=== PATIENT | female | born 1990 | race Caucasian/White ===

== ENCOUNTER 2017-05-31 16:39 | Emergency (ER) | payer MEDICAID ==
[2017-05-31 17:45] VITALS: BMI 47.2
[2017-05-31 18:48] LABS: SQUAMOUS EPITHIAL 5 /hpf (0-5); URINE BACTERIA RARE (<OCC); URINE BILIRUBIN NEGATIVE (NEGATIVE); URINE BLOOD NEGATIVE (NEGATIVE); URINE CLARITY CLOUDY (Clear); URINE COLOR YELLOW (YELLOW); URINE GLUCOSE (UA) NEG (Normal); URINE LEUKOCYTE ESTERASE MOD Leu/uL (Negative); URINE PROTEIN 30 mg/dL (NEGATIVE); URINE UROBILINOGEN 0.2-1.0 mg/dL (0.2-1.0)
[2017-06-01 00:50] VITALS: BP 126/59; PULSE 108; RESP 17; TEMP 97.9; O2SAT 100
== END 2017-05-31 20:10 | disposition home or self-care (01) ==
LOC: H.EROB2 16:39
DX: O26.93 Pregnancy related conditions, unspecified, third trimester (principal); R10.2 Pelvic and perineal pain; Z3A.38 38 weeks gestation of pregnancy; O47.1 False labor at or after 37 completed weeks of gestation; Z59.0 Homelessness

== ENCOUNTER 2017-08-14 23:22 | Emergency (ER) | payer MEDICAID ==
[2017-08-14 23:23] VITALS: BMI 47.2
[2017-08-14 23:35] VITALS: BP 110/68; PULSE 102; RESP 18; TEMP 98.2; O2SAT 99
--- NOTE | 2017-08-14 23:49 | ED PDOC ---
HPI: Abdomen Time Seen by Provider: 08/14/17 23:47 Chief Complaint (Nursing): Abdominal Pain Chief Complaint (Provider): abd pain History Per: Patient Additional Complaint(s): 27-year-old non-domiciled female presents with right lower quadrant pain ongoing for 2 weeks. Patient is 2 months status post . Patient states she is currently menstruating and started her cycle yesterday. She denies dysuria, hematuria and vaginal discharge. Patient rates pain as a 6 out of 10 upon arrival. She complains of nausea with no vomiting and denies any constipation but has had episodes of watery, nonbloody diarrhea. PMD: none Past Medical History Reviewed: Historical Data, Nursing Documentation, Vital Signs Vital Signs: Last Vital Signs Temp 98.2 F 08/14/17 23:30 Pulse 102 H 08/14/17 23:30 Resp 18 08/14/17 23:30 BP 110/68 08/14/17 23:30 Pulse Ox 99 08/15/17 00:58 - Medical History PMH: Anxiety, Depression, HTN - Surgical History Surgical History: Tonsillectomy, (x 1) - Family History Family History: States: No Known Family Hx - Living Arrangements Living Arrangements: With Family - Social History Current smoker - smoking cessation education provided: No Alcohol: None Drugs: Denies - Home Medications Home Medications: Ambulatory Orders Medication Instructions Recorded Naproxen [Naprosyn] 500 mg PO BID #20 tab 08/15/17 - Allergies Allergies/Adverse Reactions: Allergies Allergy/AdvReac Type Severity Reaction Status Date / Time No Known Allergies Allergy Verified 05/31/17 00:48 Review of Systems ROS Statement: Except As Marked, All Systems Reviewed And Found Negative Constitutional: Negative for: Fever, Chills Cardiovascular: Negative for: Chest Pain Respiratory: Negative for: Cough Gastrointestinal: Positive for: Nausea, Abdominal Pain, Diarrhea. Negative for : Vomiting, Constipation, Melena, Hematochezia, Hematemesis, Rectal Pain Genitourinary Female: Positive for: Dysuria, Vaginal Bleeding (currently menstruating). Negative for: Frequency, Incontinence, Hematuria, Vaginal Discharge Physical Exam - Reviewed Nursing Documentation Reviewed: Yes Vital Signs Reviewed: Yes - Physical Exam Appears: Positive for: Well, Non-toxic, No Acute Distress Skin: Positive for: Normal Color. Negative for: Rash Eye Exam: Positive for: Normal appearance Cardiovascular/Chest: Positive for: Regular Rate, Rhythm Respiratory: Positive for: Normal Breath Sounds Gastrointestinal/Abdominal: Positive for: Soft, Tenderness (Minimal lower abdominal tenderness, no rebound, no guarding, no distention), Other (Well- healed scar noted) Back: Negative for: L CVA Tenderness, R CVA Tenderness Extremity: Positive for: Normal ROM Neurologic/Psych: Positive for: Alert, Oriented - Laboratory Results Result Diagrams: 08/15/17 00:14 08/15/17 00:14 Urine POC: Negative Urine dip results: Positive for: Blood (moderate - patient is currently menstruating). Negative for: Leukocyte Esterase, Nitrate, Ketones, Glucose, Bilirubin, Protein - ECG O2 Sat by Pulse Oximetry: 99 Pulse Ox Interpretation: Normal Medical Decision Making Medical Decision Makin27 year old with lower abd pain and dysuria, currently menstruating Abdominal exam is benign Plan: Urine dip and test CBC CMP Lipase IVF IV toradol IV zofran Patient only feels slightly better after Toradol dose was given, 1 g Tylenol oral dose administered. Patient aware of all diagnostic testing results, all questions answered. Patient given prescriptions for Naprosyn and was referred to clinic for follow-up. Disposition - Clinical Impression Clinical Impression: Menstrual cramps - Patient ED Disposition Is Patient to be Admitted: No Counseled Patient/Family Regarding: Studies Performed, Diagnosis, Need For Followup, Rx Given - Disposition [facility]errals[facility] Disposition: Routine/Home Disposition Time: 02:02 Condition: STABLE Additional Instructions: Take prescription meds as directed as needed for pain. Follow-up with clinic in 2-3 days. Prescriptions: Naproxen [Naprosyn] 500 mg PO BID #20 tab Instructions: Menstrual Cramps (DC), Painful Periods Forms: [employer] ([place]) Results - Vital Signs Recent Vital Signs: Last Vital Signs Temp 98.2 F 08/14/17 23:30 Pulse 102 H 08/14/17 23:30 Resp 18 08/14/17 23:30 BP 110/68 08/14/17 23:30 Pulse Ox 99 08/15/17 02:10 - Labs Result Diagrams: 08/15/17 00:14 08/15/17 00:14 Labs: Laboratory Results - last 24 hr 08/15/17 08/15/17 00:14 00:14 WBC 8.3 RBC 3.97 Hgb 11.8 L Hct 35.6 MCV 89.5 MCH 29.6 MCHC 33.1 RDW 15.5 H Plt Count 284 MPV 7.7 Neut % (Auto) 57.1 Lymph % (Auto) 32.1 [place] % (Auto) 8.6 Eos % (Auto) 1.8 Baso % (Auto) 0.4 Neut # (Auto) 4.7 Lymph # (Auto) 2.7 [place] # (Auto) 0.7 Eos # (Auto) 0.1 Baso # (Auto) 0.0 Sodium 143 Potassium 3.7 Chloride 107 Carbon Dioxide 23 Anion Gap 17 BUN 10 Creatinine 0.7 Est GFR ( Amer) > 60 Est GFR (Non-Af Amer) > 60 Random Glucose 93 Calcium 9.0 Total Bilirubin 0.5 AST 19 ALT 25 Alkaline Phosphatase 80 Total Protein 7.2 Albumin 4.1 Globulin 3.1 Albumin/Globulin Ratio 1.3 Lipase 72
[2017-08-15] MEDS ORDERED: Sodium Chloride 0.9% 1,000 ML IV STA (00:09)
[2017-08-15 00:39] LABS: BASO % 0.4 % (0.0-2.0); EOS # 0.1 K/uL (0.0-0.7); EOS % 1.8 % (0.0-4.0); HEMOGLOBIN 11.8 g/dL (12.0-16.0); LYMPH # 2.7 K/uL (1.0-4.3); LYMPH % 32.1 % (20.0-40.0); MEAN CELL VOLUME 89.5 fl (81.0-99.0); MEAN CORPUSCULAR HEMOGLOBIN 29.6 pg (27.0-31.0); MEAN CORPUSCULAR HGB CONC 33.1 g/dL (33.0-37.0); MEAN PLATELET VOLUME 7.7 fl (7.2-11.7); MONO # 0.7 K/uL (0.0-0.8); MONO % 8.6 % (0.0-10.0); NEUT # 4.7 K/uL (1.8-7.0); NEUT % 57.1 % (50.0-75.0); NRBC % 0.1 % (0.0-0.0); RBC 3.97 Mil/uL (3.80-5.20); RED CELL DISTRIBUTION WIDTH 15.5 % (11.5-14.5); WHITE BLOOD COUNT 8.3 K/uL (4.8-10.8)
[2017-08-15 01:08] LABS: BLOOD UREA NITROGEN 10 mg/dl (7-17); GFR AFRICAN-AMERICAN > 60; GFR NON-AFRICAN AMERICAN > 60
[2017-08-15 01:09] LABS: ALB/GLOB RATIO 1.3 (1.0-2.1); ALBUMIN 4.1 g/dL (3.5-5.0); ALT/SGPT 25 U/L (9-52); AST/SGOT 19 U/L (14-36)
[2017-08-15 01:10] LABS: LIPASE 72 U/L (23-300)
== END 2017-08-15 06:00 | disposition home or self-care (01) ==
LOC: H.ER 23:22
DX: N94.6 Dysmenorrhea, unspecified (principal); F32.9 Major depressive disorder, single episode, unspecified; F41.9 Anxiety disorder, unspecified; I10 Essential (primary) hypertension
CPT/HCPCS: 80053; 81025; 83690; 85025; 96374; 96375; 99283; J1885; J2405; J7030